=== PATIENT | male | born 1970 | race Caucasian/White ===

== ENCOUNTER 2016-09-17 23:25 | Emergency (ER) | payer OTHER ==
[~2016-09-17] VITALS: Ht 177.8 cm; Wt 79.4 kg
[~2016-09-17 23:25] MED LIST: GABAPENTIN800 MG ORAL; KLONOPIN1 MG ORAL; Risperdal; ZOLOF
[2016-09-18 00:07] LABS: BASOPHILS % (AUTO) 1.2 % (0.0-2.0); EOSINOPHILS % (AUTO) 0.9 % (0.0-3.0); LYMPHOCYTES % (AUTO) 32.8 % (20.0-45.0); MEAN CORPUSCULAR HGB CONC 34.8 G/DL (32.0-36.0); MEAN CORPUSCULAR VOLUME 98 FL (80-99); MEAN PLATELET VOLUME 8.3 FL (6.5-10.1); MONOCYTES % (AUTO) 7.1 % (1.0-10.0); PLATELET COUNT 265 K/UL (150-450); RED BLOOD COUNT 4.65 M/UL (4.70-6.10); RED CELL DISTRIBUTION WIDTH 13.1 % (11.6-14.8); WHITE BLOOD COUNT 10.5 K/UL (4.8-10.8)
[2016-09-18 00:08] LABS: APPEARANCE,URINE CLEAR; KETONES,URINE NEGATIVE (NEGATIVE); LEUKOCYTE ESTERASE ,URINE NEGATIVE (NEGATIVE); NITRITE,URINE NEGATIVE (NEGATIVE); PH,URINE 5 (4.5-8.0); PROTEIN,URINE NEGATIVE (NEGATIVE); UROBILINOGEN,URINE NORMAL MG/DL (0.0-1.0)
[2016-09-18 00:20] LABS: ACETAMINOPHEN < 10 ug/mL (10-30); ALANINE AMINOTRANSFERASE 40 U/L (3-41); ALBUMIN/GLOBULIN RATIO 1.4 (1.0-2.7); ALCOHOL 224 mg/dL; ANION GAP 20 (5-15); ASPARTATE AMINO TRANSFERASE 50 U/L (5-40); CALCIUM 8.8 mg/dL (8.6-10.2); CARBON DIOXIDE 21 mEQ/L (20-30); CHLORIDE 103 mEQ/L (98-107); CREATININE 0.8 mg/dL (0.7-1.2); GLOMERULAR FILTRATION RATE > 60 mL/min (>60); HEMOLYSIS 8; POTASSIUM 3.8 mEQ/L (3.4-4.9); SODIUM 144 mEQ/L (135-145); TOTAL PROTEIN 7.2 g/dL (6.6-8.7)
--- NOTE | 2016-09-18 01:57 | Emergency Room Report ---
History of Present Illness General Chief Complaint: Medical Clearance Source: Patient Present Illness HPI Is a 46-year-old male with no significant past medical history except for asthma. He presents with chief complaint of shortness of breath. He had call 911 because he said he felt suicidal depressed. Police placed on a 5150 and significant a psych facility. He then complaining that he felt short of breath and he told me that he always feels short of breath. Denies any fever chills denies nausea vomiting. Denies delusion or hallucination. No homicidal thought. Still felt depressed. Allergies: Coded Allergies: ARIPIPRAZOLE (Unverified Allergy, Unknown, 03/22/15) Patient History Past Medical History: see triage record, old chart reviewed, psych hx, asthma Past Surgical History: none Family History: none Social History: tobacco use, ETOH Immunizations: other Reviewed Nursing Documentation: PMH: Agreed, PSxH: Agreed Nursing Documentation-PMH Past Medical History: No History, Except For Hx Asthma: Yes Hx Dialysis: No - NERVE PAIN BLE Hx Neurological Problems: Yes - LE nerve pain Hx Seizures: Yes Review of Systems ENT: Denies: sore throat Cardiovascular: Denies: chest pain, palpitations Gastrointestinal/Abdominal: Denies: diarrhea, nausea, vomiting Musculoskeletal: Denies: back problems Skin: Denies: rash Neurological: Denies: SEXTON, seizures All Other Systems: negative except mentioned in HPI Physical Exam Vital Signs Date Time Temp Pulse Resp B/P Pulse Ox O2 Delivery O2 Flow Rate FiO2 09/17/16 23:18 97.9 95 16 132/81 95 vitals normal Sp02 EP Interpretation: reviewed, normal General Appearance: alert/responsive, no apparent distress, non-toxic Head: normocephalic, atraumatic Eyes: PERRL, EOMI ENT: oropharynx normal Neck: supple/symm/no masses Respiratory: effort normal, no rhonchi, no wheezing Cardiovascular: no murmur, gallop, rub Gastrointestinal: non-tender, no mass, non-distended, no rebound/guarding, normal bowel sounds Musculoskeletal: gait & station normal Neurologic: oriented x3, sensory intact, motor strength/tone normal Suicide Risk Assessment: Suicidal Ideation: Yes Had intent to initiate attempt: No Pt's plan for suicide attempt: No Has means to complete attempt: No Skin: no rash, normal palpation Medical Decision Making Diagnostic Impression: Primary Impression: Alcohol intoxication Qualified Codes: F10.920 - Alcohol use, unspecified with intoxication, uncomplicated Additional Impressions: Anxiety Suicidal ideations ER Course Patient with suicidal thoughts. This may be drugs and alcohol related. It shows of breath is probably secondary to anxiety from alcohol. He sleeping comfortably. Lungs are clear. I see no evidence of ACS, PE, dissection to name a few. He is on a 5150. Once alcohol level is less than 100, he is medically cleared for psychiatric placement. Lab Results Impression last with elevated alcohol level Last Vital Signs Date Time Temp Pulse Resp B/P Pulse Ox O2 Delivery O2 Flow Rate FiO2 09/17/16 23:18 97.9 95 16 132/81 95 Status: improved Disposition: XFER TO PSYCH HOSP/UNIT Condition: Stable Referrals: Alecia JUÁREZ,REFERRING (PCP) NICOLASA GRAHAM M.D. Sep 18, 2016 01:57
[2016-09-18 02:05] VITALS: BP 129/87
[2016-09-18 05:51] VITALS: BP 135/73
[2016-09-18 08:23] VITALS: BP 131/76
[2016-09-18] MEDS ORDERED: LORazepam 1mg tab ORAL ONE (10:45)
[2016-09-18 12:30] VITALS: BP 132/75
--- NOTE | 2016-09-18 13:30 | Consultation ---
DATE OF CONSULTATION: NOTE: POOR AUDIO QUALITY HISTORY OF PRESENT ILLNESS: This is a 46-year-old male with a history of alcohol dependence and anxiety disorder. He was evaluated in the emergency room. He presented with a chief complaint of suicidal ideation. In the emergency room, the patient's alcohol level was noted to be less than 100. He also has been smoking marijuana. The police put him on a 5150 hold after he called 911 and complained of suicidal ideation. In the emergency room, he stated that he would like to be transferred to the [facility] as his psychiatrist is there. The patient recently applied for disability and is hoping to receive SSI. He has not been taking any antidepressants, only taking Klonopin three times a day, Flexeril, and Neurontin. The patient does not endorse any psychotic symptoms. He is endorsing anxiety and irritability. No other depressive symptoms. He stated that he is suicidal. I do not believe that he is having any intention or plan to end his life. I believe this is a secondary gain. However, I was unable to get a hold of his psychiatrist, Dr. Tyler and the patient in the middle of the evaluation, decided to walk out of the ED and go to [facility]. Then 5 minutes later, he decided again that he would like to go to [facility]. PAST PSYCHIATRIC HISTORY: He stated that he has several psychiatric hospitalizations. No known suicide attempts in the past. PAST MEDICAL HISTORY: Significant for asthma. ALLERGIES: Includes Xanax. SUBSTANCE USE HISTORY: Extensive use of marijuana as well as alcohol. SOCIAL HISTORY: The patient lives in . Apparently, there is some issues with the housing and his neighbor. Apparently, he left his apartment 2 weeks. He is returned and there is as the neighbor complained about him to the MENTAL STATUS EXAMINATION: The patient is alert and oriented x4. Somewhat uncooperative during the examination. He was at some point, he became belligerent, [facility] and stated that the doctors . Mood was irritable. Affect was constricted, congruent with mood appropriate. Thought process was linear. Thought content, he stated he does endorse suicidal ideation. I do not believe that danger to self. No delusions. No auditory or visual hallucinations. Cognition was intact. Insight and judgment was good. ASSESSMENT: AXIS I: Polysubstance dependence including benzodiazepine, marijuana, and alcohol, rule out major depressive disorder. AXIS II: Deferred. AXIS III: Asthma. AXIS IV: Housing issues as well as financial issues. AXIS V: 60. PLAN: 1. The patient is currently on a 5150 hold and plan for him to be transferred to [facility]. 2. If the patient decides to leave, he should be the patient decided to leave or not to [facility]. 5150 hold. The patient will follow up with his psychiatrist. 3. He stated that he is able to go to another hospital. However, he has problems with transportation. 4. He is not an immuno danger to self. Rachel Holbrook M.D. DR: MOUNA JOB#: [id number] CC:
[2016-09-18 13:55] VITALS: BP 134/92
== END 2016-09-18 13:57 ==
LOC: EDBD 23:25 → EMR 23:45
DX: F10.129 Alcohol abuse with intoxication, unspecified (principal); F41.9 Anxiety disorder, unspecified; R45.851 Suicidal ideations; J45.909 Unspecified asthma, uncomplicated; Z88.8 Allergy status to other drugs, medicaments and biological substances
CPT/HCPCS: 36415; 80053; 80300; 80329; 81003; 85025

== ENCOUNTER 2016-12-09 22:07 | Emergency (ER) | payer OTHER ==
[~2016-12-09] VITALS: Ht 175.3 cm; Wt 72.6 kg
[2016-12-09 23:14] VITALS: BP 147/88
--- NOTE | 2016-12-09 23:42 | Emergency Room Report ---
History of Present Illness General Chief Complaint: Behavioral Complaint Source: Patient, EMS (Gallito Ortiz M.D.) Present Illness HPI The patient's been off his medications for 3 months. He suffers from depression. Right now he feels a lot of pressure in his head. He feels suicidal his vital be run out in traffic. He drank a lot of alcohol tonight. In the past he was taking Zoloft Clonopin and gabapentin. No seizures, GI bleed, melena, rashes, head trauma. No chest pain, palpitations, NVD, dysuria, joint pain, cough, headache. (Gallito Ortiz M.D.) Allergies: Coded Allergies: ARIPIPRAZOLE (Unverified Allergy, Unknown, 03/22/15) Patient History Past Medical History: see triage record Social History: Reports: alcohol use Social History Narrative lives in apartment by himself Reviewed Nursing Documentation: PMH: Agreed, PSxH: Agreed (Gallito Ortiz M.D.) Nursing Documentation-PMH Past Medical History: No History, Except For Hx Asthma: Yes Hx Dialysis: No - NERVE PAIN BLE Hx Neurological Problems: Yes - LE nerve pain Hx Seizures: Yes (Gallito Ortiz M.D.) Review of Systems All Other Systems: negative except mentioned in HPI (Gallito Ortiz M.D.) Physical Exam Vital Signs Date Time Temp Pulse Resp B/P (MAP) Pulse Ox O2 Delivery O2 Flow Rate FiO2 12/09/16 22:15 97.3 105 14 147/88 98 Room Air Sp02 EP Interpretation: reviewed, normal General Appearance: well appearing, GCS 15, mild distress - with some agitation Head: normocephalic Eyes: bilateral eye PERRL, bilateral eye Scleral Injection ENT: moist mucus membranes - no lingual macerations Neck: supple, no bony tend Respiratory: chest non-tender, lungs clear, normal breath sounds Cardiovascular #1: regular rate, rhythm Cardiovascular #2: 2+ radial (R) Gastrointestinal: normal inspection, normal bowel sounds, non tender, no mass, non-distended Musculoskeletal: back normal, gait/station normal, normal range of motion Neurologic: alert, oriented x3, other - nystagmus Psychiatric: depressed affect, other - labile and occasionally verbally abusive with staff Suicide Risk Assessment: Suicidal Ideation: Yes Had intent to initiate attempt: Yes Pt's plan for suicide attempt: Yes Has means to complete attempt: Yes Skin: normal inspection, warm/dry (Gallito Ortiz M.D.) Medical Decision Making Diagnostic Impression: Primary Impression: Suicidal ideations Additional Impression: Alcohol intoxication Qualified Codes: F10.929 - Alcohol use, unspecified with intoxication, unspecified ER Course Patient presents with agitation and suicidal ideation. Differential includes exacerbation pression, alcohol intoxication, other drug ingestion, electrolyte imbalance amongst others. He's emergent evaluation EKG, labs. There is no evidence of any head trauma and has a nonfocal neurologic exam and therefore CT is not indicated. He also has no chest symptoms a chest x-ray is not indicated. Treated with IV hydration and also given antipsychotic medication. Labs are significant for elevated blood alcohol. His mild leukocytosis. More agitated. States he will take medication. Labs with + alcohol. Improved with medication. Sleeping. Due to the suicidal ideation needs to be reevaluated in the morning and evaluated by our psychiatrist. Signed out to Dr. Mullen. Laboratory Tests Test 12/09/16 23:02 12/09/16 23:10 White Blood Count 14.5 K/UL (4.8-10.8) H Red Blood Count 5.06 M/UL (4.70-6.10) Hemoglobin 16.8 G/DL (14.2-18.0) Hematocrit 48.9 % (42.0-52.0) Mean Corpuscular Volume 97 FL (80-99) Mean Corpuscular Hemoglobin 33.2 PG (27.0-31.0) H Mean Corpuscular Hemoglobin Concent 34.4 G/DL (32.0-36.0) Red Cell Distribution Width 12.6 % (11.6-14.8) Platelet Count 381 K/UL (150-450) Mean Platelet Volume 8.0 FL (6.5-10.1) Neutrophils (%) (Auto) 51.3 % (45.0-75.0) Lymphocytes (%) (Auto) 42.0 % (20.0-45.0) Monocytes (%) (Auto) 4.1 % (1.0-10.0) Eosinophils (%) (Auto) 1.4 % (0.0-3.0) Basophils (%) (Auto) 1.3 % (0.0-2.0) Sodium Level 142 mEQ/L (135-145) Potassium Level 3.5 mEQ/L (3.4-4.9) Chloride Level 100 mEQ/L (98-107) Carbon Dioxide Level 22 mEQ/L (20-30) Anion Gap 20 (5-15) H Blood Urea Nitrogen 9 mg/dL (7-23) Creatinine 0.8 mg/dL (0.7-1.2) Estimate Glomerular Filtration Rate > 60 mL/min (>60) Glucose Level 122 mg/dL (74-106) H Calcium Level 9.2 mg/dL (8.6-10.2) Total Bilirubin < 0.2 mg/dL (0.0-1.2) Aspartate Amino Transferase (AST) 21 U/L (5-40) Alanine Aminotransferase (ALT) 24 U/L (3-41) Alkaline Phosphatase 112 U/L (40-129) Total Creatine Kinase 79 U/L (38-174) Total Protein 7.8 g/dL (6.6-8.7) Albumin 4.6 g/dL (3.5-5.2) Globulin 3.2 g/dL Albumin/Globulin Ratio 1.4 (1.0-2.7) Salicylates Level < 1 mg/dL (10-30) L Acetaminophen Level < 10 ug/mL (10-30) L Serum Alcohol 231 mg/dL Urine Opiates Screen Negative (NEGATIVE) Urine Barbiturates Screen Negative (NEGATIVE) Phencyclidine (PCP) Screen Negative (NEGATIVE) Urine Amphetamines Screen Negative (NEGATIVE) Urine Benzodiazepines Screen Negative (NEGATIVE) Urine Cocaine Screen Negative (NEGATIVE) Urine Marijuana (THC) Screen Positive (NEGATIVE) H (Gallito Ortiz M.D.) ER Course 46-year-old male history of anxiety and depression, off his medications for 3 months, states that he takes Clonopin, Zoloft, and gabapentin. Patient currently endorsing suicidal ideation with a plan, states that he wants to run in front of traffic or hanging himself. Pending psych consult Patient has been very demanding, hostile, and aggressive towards female staff. Otherwise patient does not appear to be in acute distress, not tremulous, not diaphoretic Evaluated by psych, Patient requesting admission to a psych facility, pending transfer Signed out to Dr. Zhang 46 yo M with psych hx very aggressive/manipulative toward staff stating SI "I will jump in front of a car" pending xfer to psych facility per patients request, also demanding a certain psych dr to be admitted to D/w Dr. Holbrook - plan is that if patient is NOT accepted into psych facility, can be discharged home. pt likely more so narcissistic w/ other agenda / manipulative. do not give any benzos to patient (Piyush Mullen M.D.) EKG Diagnostic Results Rate: normal Rhythm: NSR ST Segments: no acute changes (Gallito Ortiz M.D.) Rhythm Strip Diag. Results EP Interpretation: yes Rhythm: NSR, no PVC's, no ectopy (Gallito Ortiz M.D.) Last Vital Signs Date Time Temp Pulse Resp B/P (MAP) Pulse Ox O2 Delivery O2 Flow Rate FiO2 12/10/16 16:30 98.0 92 16 156/93 98 Room Air Status: improved (Gallito Ortiz M.D.) Disposition: XFER SHT-TRM HOSP - [facility] Condition: Serious - stable for transfer Scripts Gabapentin* (GABAPENTIN*) 800 Mg Tablet 800 MG ORAL BID, #28 TAB Prov: Gallito Ortiz M.D. 12/10/16 Sertraline Hcl* (ZOLOFT*) 25 Mg Tablet 25 MG ORAL DAILY, #14 TAB Prov: Gallito Ortiz M.D. 12/10/16 Referrals: Alecia JUÁREZ,REFERRING (PCP) Gallito Ortiz M.D. Dec 09, 2016 23:42 Piyush Mullen M.D. Dec 10, 2016 06:38
[2016-12-09] MEDS ORDERED: LORazepam 1mg tab ORAL ONE (23:45)
[2016-12-09 23:50] LABS: BASOPHILS % (AUTO) 1.3 % (0.0-2.0); EOSINOPHILS % (AUTO) 1.4 % (0.0-3.0); MEAN CORPUSCULAR HEMOGLOBIN 33.2 PG (27.0-31.0); MEAN CORPUSCULAR HGB CONC 34.4 G/DL (32.0-36.0); MEAN CORPUSCULAR VOLUME 97 FL (80-99); MONOCYTES % (AUTO) 4.1 % (1.0-10.0); NEUTROPHILS % (AUTO) 51.3 % (45.0-75.0); PLATELET COUNT 381 K/UL (150-450); RED BLOOD COUNT 5.06 M/UL (4.70-6.10); RED CELL DISTRIBUTION WIDTH 12.6 % (11.6-14.8); WHITE BLOOD COUNT 14.5 K/UL (4.8-10.8)
[2016-12-10 00:05] LABS: ACETAMINOPHEN < 10 ug/mL (10-30); ALANINE AMINOTRANSFERASE 24 U/L (3-41); ALBUMIN/GLOBULIN RATIO 1.4 (1.0-2.7); ALCOHOL 231 mg/dL; ANION GAP 20 (5-15); ASPARTATE AMINO TRANSFERASE 21 U/L (5-40); CALCIUM 9.2 mg/dL (8.6-10.2); CARBON DIOXIDE 22 mEQ/L (20-30); CHLORIDE 100 mEQ/L (98-107); CREATININE 0.8 mg/dL (0.7-1.2); GLOMERULAR FILTRATION RATE > 60 mL/min (>60); HEMOLYSIS 4; POTASSIUM 3.5 mEQ/L (3.4-4.9); SODIUM 142 mEQ/L (135-145); TOTAL PROTEIN 7.8 g/dL (6.6-8.7)
[2016-12-10] MEDS ORDERED: ZOLOFT25 MG ORAL (05:11)
[2016-12-10] MEDS ORDERED: GABAPENTIN800 MG ORAL (05:11)
--- NOTE | 2016-12-10 11:37 | Consultation ---
History of Present Illness General Chief Complaint: Behavioral Complaint Present Illness HPI 46-year-old male with a history of alcohol dependence and anxiety disorder, the pt has chief complaint of suicidal ideation. the pt was here in September with similar presentation. He apparently relapsed after discharged from the hospital. Dr. Tyler started him on medications and the pt was released from [facility] without follow up plan. the pt is entitled, stated "you have to admit me I' m telling you that I am suicidal. You are liable. I called 911. You have to admit me to [facility]." The pt stated "you have no other way to transfer me." The pt system is positive for alcohol. the pt is irritable. He has been sleep most of the time. He has been eating food. the pt has been harassing female staff. the pt does not endorse any psychotic sxs. the pt doesn't endorse manic sxs. the pt is not gravely disabled. the pt was not anxious however he was asking for Ativan. We ordered Lexapro for anxiety. Allergies: Coded Allergies: ARIPIPRAZOLE (Unverified Allergy, Unknown, 03/22/15) Medication History Scheduled Clonazepam* (Klonopin*), 2 MG ORAL TWICE A DAY, (Reported) Gabapentin* (Gabapentin*), 800 MG ORAL THREE TIMES A DAY, (Reported) Gabapentin* (Gabapentin*), 800 MG ORAL BID Sertraline Hcl* (Zoloft*), 25 MG ORAL DAILY Miscellaneous Medications [Risperdal], (Reported) [Zolof], (Reported) Patient History History Provided By: Patient, Medical Record, PMD Healthcare decision maker Resuscitation status Advanced Directive on File Past Medical/Surgical History Past Medical/Surgical History: (1) Syncope (2) Syncope (3) Suicidal ideations (4) Alcohol intoxication (5) Anxiety (6) Suicidal ideations (7) Suicidal ideations (8) Drug abuse Review of Systems Psychiatric: Reports: prior hx, depressed feelings, emotional problems, SI Physical Exam General Appearance: no apparent distress, alert Neurologic: alert, oriented x 3, responsive, normal mood/affect Last 24 Hour Vital Signs Date Time Temp Pulse Resp B/P (MAP) Pulse Ox O2 Delivery O2 Flow Rate FiO2 12/09/16 23:14 97.3 94 14 147/88 98 Room Air 12/09/16 22:15 97.3 105 14 147/88 98 Room Air Laboratory Tests Test 12/09/16 23:02 12/09/16 23:10 White Blood Count 14.5 K/UL (4.8-10.8) H Red Blood Count 5.06 M/UL (4.70-6.10) Hemoglobin 16.8 G/DL (14.2-18.0) Hematocrit 48.9 % (42.0-52.0) Mean Corpuscular Volume 97 FL (80-99) Mean Corpuscular Hemoglobin 33.2 PG (27.0-31.0) H Mean Corpuscular Hemoglobin Concent 34.4 G/DL (32.0-36.0) Red Cell Distribution Width 12.6 % (11.6-14.8) Platelet Count 381 K/UL (150-450) Mean Platelet Volume 8.0 FL (6.5-10.1) Neutrophils (%) (Auto) 51.3 % (45.0-75.0) Lymphocytes (%) (Auto) 42.0 % (20.0-45.0) Monocytes (%) (Auto) 4.1 % (1.0-10.0) Eosinophils (%) (Auto) 1.4 % (0.0-3.0) Basophils (%) (Auto) 1.3 % (0.0-2.0) Sodium Level 142 mEQ/L (135-145) Potassium Level 3.5 mEQ/L (3.4-4.9) Chloride Level 100 mEQ/L (98-107) Carbon Dioxide Level 22 mEQ/L (20-30) Anion Gap 20 (5-15) H Blood Urea Nitrogen 9 mg/dL (7-23) Creatinine 0.8 mg/dL (0.7-1.2) Estimat Glomerular Filtration Rate > 60 mL/min (>60) Glucose Level 122 mg/dL (74-106) H Calcium Level 9.2 mg/dL (8.6-10.2) Total Bilirubin < 0.2 mg/dL (0.0-1.2) Aspartate Amino Transf (AST/SGOT) 21 U/L (5-40) Alanine Aminotransferase (ALT/SGPT) 24 U/L (3-41) Alkaline Phosphatase 112 U/L (40-129) Total Creatine Kinase 79 U/L (38-174) Total Protein 7.8 g/dL (6.6-8.7) Albumin 4.6 g/dL (3.5-5.2) Globulin 3.2 g/dL Albumin/Globulin Ratio 1.4 (1.0-2.7) Salicylates Level < 1 mg/dL (10-30) L Acetaminophen Level < 10 ug/mL (10-30) L Serum Alcohol 231 mg/dL Urine Opiates Screen Negative (NEGATIVE) Urine Barbiturates Screen Negative (NEGATIVE) Phencyclidine (PCP) Screen Negative (NEGATIVE) Urine Amphetamines Screen Negative (NEGATIVE) Urine Benzodiazepines Screen Negative (NEGATIVE) Urine Cocaine Screen Negative (NEGATIVE) Urine Marijuana (THC) Screen Positive (NEGATIVE) H Height (Feet): 5 Height (Inches): 9.00 Weight (Pounds): 160 Medications Current Medications Medications (Trade) Dose Ordered Sig/Aldo Route PRN Reason Start Time Stop Time Status Last Admin Dose Admin Escitalopram Oxalate (Lexapro) 10 mg DAILY ORAL 12/10/16 09:00 01/09/17 08:59 Sodium Chloride 1,000 ml @ 300 mls/hr [id number] IV 12/09/16 22:15 01/08/17 22:14 Assessment/Plan Status: doing well, stable Assessment/Plan Hx of alcohol dependence -wants to go to [facility] -wants to be treated by Dr. Tyler -the pt will be transferred to any psych facility available -the pt is not withdrawing -lexapro 10mg -d/w staff Rachel Holbrook M.D. Dec 10, 2016 11:37
--- NOTE | 2016-12-10 14:40 | Cardiology Report ---
APPROVED REPORT EKG Measurement Heart [id number] Normal sinus rhythm Nonspecific ST and T wave abnormality Abnormal ECG
[2016-12-10 16:28] VITALS: BP 156/93
[2016-12-10 16:30] VITALS: BP 156/93
== END 2016-12-10 16:31 ==
LOC: EDBD 22:07 → EMR 22:23
DX: R45.851 Suicidal ideations (principal); F10.129 Alcohol abuse with intoxication, unspecified; Z88.8 Allergy status to other drugs, medicaments and biological substances; Z86.69 Personal history of other diseases of the nervous system and sense organs; J45.909 Unspecified asthma, uncomplicated
CPT/HCPCS: 36415; 80053; 80300; 80329; 82550; 85025; 93005; 99285

== ENCOUNTER 2017-02-09 01:27 | Emergency (ER) | payer OTHER ==
[~2017-02-09] VITALS: Ht 170.2 cm; Wt 72.6 kg
[~2017-02-09 01:27] MED LIST changes: +ZOLOFT25 MG ORAL
[2017-02-09] MEDS: LORazepam Inj 2mg/ml 1ml IM ONE (01:35)
--- NOTE | 2017-02-09 01:38 | Emergency Room Report ---
History of Present Illness General Chief Complaint: General Complaint Source: Patient, EMS (ALEXANDER MANTILLA M.D.) Present Illness HPI 46-year-old male presents ED for evaluation. Patient brought in by [employer] and EMS. Patient was in police custody for running into traffic tonight. Patient is feeling very anxious stating he wants to hurt himself. Patient notes history of anxiety. Denies any alcohol or drug use. Denies fevers or chills. Denies chest pain or shortness of breath. No other aggravating relieving factors. Denies any other associated symptoms (ALEXANDER MANTILLA M.D.) Allergies: Coded Allergies: ARIPIPRAZOLE (Unverified Allergy, Unknown, 03/22/15) Patient History Past Medical History: asthma, seizures Pertinent Family History: none Social History: Denies: smoking, alcohol use, drug use Immunizations: UTD Reviewed Nursing Documentation: PMH: Agreed, PSxH: Agreed (ALEXANDER MANTILLA M.D.) Nursing Documentation-PMH Hx Asthma: Yes Hx Dialysis: No - NERVE PAIN BLE Hx Neurological Problems: Yes - LE nerve pain Hx Seizures: Yes (ALEXANDER MANTILLA M.D.) Review of Systems All Other Systems: negative except mentioned in HPI (ALEXANDER MANTILLA M.D.) Physical Exam Vital Signs Date Time Temp Pulse Resp B/P (MAP) Pulse Ox O2 Delivery O2 Flow Rate FiO2 02/09/17 01:10 98.1 100 18 120/80 98 Room Air Sp02 EP Interpretation: reviewed, normal General Appearance: no apparent distress, alert, GCS 15, non-toxic Head: normocephalic, atraumatic Eyes: bilateral eye normal inspection, bilateral eye PERRL ENT: hearing grossly normal, normal pharynx, no angioedema, normal voice Neck: full range of motion, supple/symm/no masses Respiratory: chest non-tender, lungs clear, normal breath sounds, speaking full sentences Cardiovascular #1: regular rate, rhythm, no edema Cardiovascular #2: 2+ carotid (R), 2+ carotid (L), 2+ radial (R), 2+ radial (L) , 2+ dorsalis pedis (R), 2+ dorsalis pedis (L) Gastrointestinal: normal bowel sounds, non tender, soft, non-distended, no guarding, no rebound Rectal: deferred Genitourinary: normal inspection, no CVA tenderness Musculoskeletal: back normal, gait/station normal, normal range of motion, non- tender Neurologic: alert, oriented x3, responsive, motor strength/tone normal, sensory intact, speech normal Psychiatric: judgement/insight normal, memory normal, anxious Reflexes: 3+ bicep (R), 3+ bicep (L), 3+ tricep (R), 3+ tricep (L), 3+ knee (R) , 3+ knee (L) Skin: normal color, no rash, warm/dry, well hydrated Lymphatic: no adenopathy (ALEXANDER MANTILLA M.D.) Medical Decision Making Diagnostic Impression: Primary Impression: Alcohol intoxication Qualified Codes: F10.920 - Alcohol use, unspecified with intoxication, uncomplicated Additional Impressions: Suicidal ideations Hypokalemia ER Course Received signout from Dr Mantilla at 630am Patient's ETOH level now <100 K was repleted Is clinically sober. Patient adamantly now denying SI Also denies HI, AVH Remains on 5150 hold Patient disruptive to ED, yelling, demanding klonopin 2mg Was given dose of AM klonopin [facility] hospitals contacted for placement and Dr Noland also consulted at 7am Dr Noland cleared patient of 5150 hold and patient was DCed from ER at 10am (CAROL VILLA M.D.) Last Vital Signs Date Time Temp Pulse Resp B/P (MAP) Pulse Ox O2 Delivery O2 Flow Rate FiO2 02/09/17 01:10 98.1 100 18 120/80 98 Room Air (ALEXANDER MANTILLA M.D.) Status: improved (CAROL VILLA M.D.) Disposition: HOME, SELF-CARE ALEXANDER MANTILLA M.D. Feb 09, 2017 01:38 CAROL VILLA M.D. Feb 09, 2017 07:04
[2017-02-09 02:25] LABS: BASOPHILS % (AUTO) 1.2 % (0.0-2.0); EOSINOPHILS % (AUTO) 1.7 % (0.0-3.0); LYMPHOCYTES % (AUTO) 47.8 % (20.0-45.0); MEAN CORPUSCULAR HEMOGLOBIN 31.2 PG (27.0-31.0); MEAN CORPUSCULAR HGB CONC 32.4 G/DL (32.0-36.0); MEAN CORPUSCULAR VOLUME 96 FL (80-99); MEAN PLATELET VOLUME 8.1 FL (6.5-10.1); MONOCYTES % (AUTO) 6.8 % (1.0-10.0); NEUTROPHILS % (AUTO) 42.6 % (45.0-75.0); PLATELET COUNT 298 K/UL (150-450); RED BLOOD COUNT 5.16 M/UL (4.70-6.10); RED CELL DISTRIBUTION WIDTH 12.8 % (11.6-14.8); WHITE BLOOD COUNT 11.3 K/UL (4.8-10.8)
[2017-02-09 02:42] LABS: ALANINE AMINOTRANSFERASE 52 U/L (12-78); ALCOHOL 233 mg/dL; ANION GAP 20 mmol/L (5-15); ASPARTATE AMINO TRANSFERASE 37 U/L (15-37); CALCIUM 9.2 MG/DL (8.5-10.1); CARBON DIOXIDE 21 MMOL/L (21-32); CHLORIDE 109 MMOL/L (98-107); CREATININE 1.1 MG/DL (0.55-1.30); GLOMERULAR FILTRATION RATE > 60 mL/min (>60); SODIUM 148 MMOL/L (136-145); TOTAL PROTEIN 8.4 G/DL (6.4-8.2)
[2017-02-09 02:46] LABS: ACETAMINOPHEN < 2 MCG/ML (10-30); POTASSIUM 2.6 MMOL/L (3.5-5.1)
[2017-02-09 06:00] VITALS: BP 112/55
[2017-02-09] MEDS: Acetaminophen 500mg (ES) tab ORAL ONE (06:17)
[2017-02-09 10:13] VITALS: BP 123/61
[2017-02-09 10:16] VITALS: BP 123/61
--- NOTE | 2017-02-10 00:22 | Consultation ---
History of Present Illness General Date patient seen: Feb 09, 2017 Chief Complaint: General Complaint Present Illness HPI the pt is well known to this physician, the pt is an er hopper and abusing the system. the pt is antisocial as well as narcissistic the pt is not a dts/dto. the pt stated that he needs to be discharged. Allergies: Coded Allergies: ARIPIPRAZOLE (Unverified Allergy, Unknown, 03/22/15) Medication History Scheduled Clonazepam* (Klonopin*), 2 MG ORAL TWICE A DAY, (Reported) Gabapentin* (Gabapentin*), 800 MG ORAL THREE TIMES A DAY, (Reported) Miscellaneous Medications [Risperdal], (Reported) [Zolof], (Reported) Patient History History Provided By: Patient, Medical Record Healthcare decision maker Resuscitation status Advanced Directive on File Review of Systems Psychiatric: Reports: no symptoms Physical Exam General Appearance: no apparent distress, alert Neurologic: alert, oriented x 3, responsive, normal mood/affect Last 24 Hour Vital Signs Date Time Temp Pulse Resp B/P (MAP) Pulse Ox O2 Delivery O2 Flow Rate FiO2 02/09/17 10:16 98.2 81 17 123/61 100 Room Air 02/09/17 10:13 98.2 81 17 123/61 100 Room Air 02/09/17 06:00 98.2 16 112/55 100 Room Air 02/09/17 01:10 98.1 100 18 120/80 98 Room Air Laboratory Tests Test 02/09/17 02:00 02/09/17 05:55 White Blood Count 11.3 K/UL (4.8-10.8) H Red Blood Count 5.16 M/UL (4.70-6.10) Hemoglobin 16.1 G/DL (14.2-18.0) Hematocrit 49.6 % (42.0-52.0) Mean Corpuscular Volume 96 FL (80-99) Mean Corpuscular Hemoglobin 31.2 PG (27.0-31.0) H Mean Corpuscular Hemoglobin Concent 32.4 G/DL (32.0-36.0) Red Cell Distribution Width 12.8 % (11.6-14.8) Platelet Count 298 K/UL (150-450) Mean Platelet Volume 8.1 FL (6.5-10.1) Neutrophils (%) (Auto) 42.6 % (45.0-75.0) L Lymphocytes (%) (Auto) 47.8 % (20.0-45.0) H Monocytes (%) (Auto) 6.8 % (1.0-10.0) Eosinophils (%) (Auto) 1.7 % (0.0-3.0) Basophils (%) (Auto) 1.2 % (0.0-2.0) Sodium Level 148 MMOL/L (136-145) H Potassium Level 2.6 MMOL/L (3.5-5.1) *L 3.3 MMOL/L (3.5-5.1) L Chloride Level 109 MMOL/L (98-107) H Carbon Dioxide Level 21 MMOL/L (21-32) Anion Gap 20 mmol/L (5-15) H Blood Urea Nitrogen 11 mg/dL (7-18) Creatinine 1.1 MG/DL (0.55-1.30) Estimat Glomerular Filtration Rate > 60 mL/min (>60) Glucose Level 104 MG/DL (74-106) Calcium Level 9.2 MG/DL (8.5-10.1) Total Bilirubin 0.1 MG/DL (0.2-1.0) L Aspartate Amino Transf (AST/SGOT) 37 U/L (15-37) Alanine Aminotransferase (ALT/SGPT) 52 U/L (12-78) Alkaline Phosphatase 120 U/L (46-116) H Total Protein 8.4 G/DL (6.4-8.2) H Albumin 4.2 G/DL (3.4-5.0) Globulin 4.2 g/dL Albumin/Globulin Ratio 1.0 (1.0-2.7) Salicylates Level 3.8 ug/mL (2.8-20) Acetaminophen Level < 2 MCG/ML (10-30) L Serum Alcohol 233 mg/dL 94 mg/dL Height (Feet): 5 Height (Inches): 7.00 Weight (Pounds): 160 Assessment/Plan Status: stable Assessment/Plan sd 5150 sd the pt Rachel Holbrook M.D. Feb 10, 2017 00:22
== END 2017-02-09 10:26 | disposition home or self-care (01) ==
LOC: EDBD 01:27 → EMR 02:09
DX: F10.920 Alcohol use, unspecified with intoxication, uncomplicated (principal); R45.851 Suicidal ideations; F41.9 Anxiety disorder, unspecified; Z88.8 Allergy status to other drugs, medicaments and biological substances; J45.909 Unspecified asthma, uncomplicated; E87.6 Hypokalemia
CPT/HCPCS: 36415; 80053; 80329; 84132; 85025; 96372; 99285; J8499

== ENCOUNTER 2017-06-20 13:16 | Emergency (ER) | payer OTHER ==
[2017-06-20] VITALS (14 sets, daily range): BP systolic 104–130; BP diastolic 60–80
[~2017-06-20] VITALS: Ht 172.7 cm; Wt 81.6 kg
[~2017-06-20 13:16] MED LIST changes: +DiphenhydrAMINE 50mg/ml Inj IVP ONE; +Haloperidol 5mg/ml Inj IM ONE; +LORazepam Inj 2mg/ml 1ml IM ONE
[2017-06-20] MEDS ORDERED: DiphenhydrAMINE 50mg/ml Inj IM ONE (13:30)
--- NOTE | 2017-06-20 14:20 | Emergency Room Report ---
History of Present Illness General Chief Complaint: Behavioral Complaint Source: Patient, EMS (Gallito Ortiz M.D.) Present Illness HPI The patient was brought to the emergency department by paramedics. There were summoned by [facility]. The patient has a history of bipolar disorder and has been off his medication for a number of weeks. He states he is suicidal. He states that he would run into traffic. He was violent with paramedics on the way in and spitting and hitting at them and needed to be restrained with handcuffs and spit mask on. The patient denies any other medical problems at this time. He denies doing drugs or alcohol. He does smoke cigarettes. He is refusing to answer many questions. Was seen by me 11/2016. Was transferred to [facility]. Also has been seen for EtOH intoxication in past. (Gallito Ortiz M.D.) Allergies: Coded Allergies: ARIPIPRAZOLE (Unverified Allergy, Unknown, 03/22/15) Patient History Limited by: medical condition Past Medical History: see triage record, old chart reviewed Social History: Reports: smoking, alcohol use, drug use Social History Narrative at home Reviewed Nursing Documentation: PMH: Agreed; PSxH: Agreed (Gallito Ortiz M.D.) Nursing Documentation-PMH Past Medical History: No History, Except For Hx Asthma: Yes Hx Dialysis: No - NERVE PAIN BLE History Of Psychiatric Problem: Yes - bipolar, depression, substance obuse Hx Neurological Problems: Yes - LE nerve pain Hx Seizures: Yes (Gallito Ortiz M.D.) Review of Systems All Other Systems: limited (Gallito Ortiz M.D.) Physical Exam Vital Signs Date Time Temp Pulse Resp B/P (MAP) Pulse Ox O2 Delivery O2 Flow Rate FiO2 06/20/17 13:11 98.0 90 20 147/108 98 Room Air 98.1 Sp02 EP Interpretation: reviewed, normal General Appearance: moderate distress - agitated, other - Disheveled Head: normocephalic Eyes: bilateral eye PERRL, bilateral eye Scleral Injection ENT: moist mucus membranes - Poor dentition Neck: supple Respiratory: chest non-tender, lungs clear, normal breath sounds Cardiovascular #1: regular rate, rhythm Cardiovascular #2: 2+ radial (R) Gastrointestinal: normal inspection, normal bowel sounds, non tender, no mass, non-distended Musculoskeletal: back normal, normal range of motion Neurologic: alert, newspaper columnist III-XII nml as tested, motor strength/tone normal, sensory intact, oriented - X2 Psychiatric: other - delusional, screaming Suicide Risk Assessment: Suicidal Ideation: Yes Had intent to initiate attempt: Yes Pt's plan for suicide attempt: Yes Has means to complete attempt: Yes Skin: warm/dry, other - dishevelled (Gallito Ortiz M.D.) Medical Decision Making Medical: Alcohol Abuse, Substance Abuse Behavioral: Schizophrenia, Bipolar Disorder Reaction to Intervention: Other - violent (Gallito Ortiz M.D.) Diagnostic Impression: Primary Impression: Acute psychosis Additional Impressions: Suicidal ideation Alcohol intoxication Qualified Codes: F10.929 - Alcohol use, unspecified with intoxication, unspecified ER Course Patient presents with suicidal ideation and psychosis. Differential includes exacerbation of schizoaffective bipolar disorder, medical noncompliance, or slight imbalance, other toxic ingestions including alcohol and methamphetamine. Patient is agitated and violent and needs sedation. Once the patient is sedated be able to better manage him with evaluation with EKG, labs. Police placed 5150. The patient is improved with sedation and more cooperative over still has occasional loud outbursts and threats. Patient sedated. Will d/c behavioral restraints, but keep non-behavioral. Labs significant for elevated BA and THC. Min elevated WBC and ALT. K slightly low. Patient signed out to Dr. Mullen. Laboratory Tests Test 06/20/17 13:50 06/20/17 14:23 Urine Color Pale yellow Urine Appearance Clear Urine pH 6 (4.5-8.0) Urine Specific [place] 1.010 (1.005-1.035) Urine Protein Negative (NEGATIVE) Urine Glucose (UA) Negative (NEGATIVE) Urine Ketones Negative (NEGATIVE) Urine Occult Blood Negative (NEGATIVE) Urine Nitrite Negative (NEGATIVE) Urine Bilirubin Negative (NEGATIVE) Urine Urobilinogen Normal MG/DL (0.0-1.0) Urine Leukocyte Esterase Negative (NEGATIVE) Urine Opiates Screen Negative (NEGATIVE) Urine Barbiturates Screen Negative (NEGATIVE) Phencyclidine (PCP) Screen Negative (NEGATIVE) Urine Amphetamines Screen Negative (NEGATIVE) Urine Benzodiazepines Screen Negative (NEGATIVE) Urine Cocaine Screen Negative (NEGATIVE) Urine Marijuana (THC) Screen Positive (NEGATIVE) H White Blood Count 11.0 K/UL (4.8-10.8) H Red Blood Count 5.09 M/UL (4.70-6.10) Hemoglobin 16.6 G/DL (14.2-18.0) Hematocrit 49.4 % (42.0-52.0) Mean Corpuscular Volume 97 FL (80-99) Mean Corpuscular Hemoglobin 32.6 PG (27.0-31.0) H Mean Corpuscular Hemoglobin Concent 33.5 G/DL (32.0-36.0) Red Cell Distribution Width 12.1 % (11.6-14.8) Platelet Count 283 K/UL (150-450) Mean Platelet Volume 8.7 FL (6.5-10.1) Neutrophils (%) (Auto) 59.9 % (45.0-75.0) Lymphocytes (%) (Auto) 31.9 % (20.0-45.0) Monocytes (%) (Auto) 5.9 % (1.0-10.0) Eosinophils (%) (Auto) 1.2 % (0.0-3.0) Basophils (%) (Auto) 1.1 % (0.0-2.0) Sodium Level 145 MMOL/L (136-145) Potassium Level 3.4 MMOL/L (3.5-5.1) L Chloride Level 106 MMOL/L (98-107) Carbon Dioxide Level 27 MMOL/L (21-32) Anion Gap 12 mmol/L (5-15) Blood Urea Nitrogen 10 mg/dL (7-18) Creatinine 0.8 MG/DL (0.55-1.30) Estimate Glomerular Filtration Rate > 60 mL/min (>60) Glucose Level 94 MG/DL (74-106) Calcium Level 8.7 MG/DL (8.5-10.1) Total Bilirubin 0.1 MG/DL (0.2-1.0) L Aspartate Amino Transferase (AST) 50 U/L (15-37) H Alanine Aminotransferase (ALT) 68 U/L (12-78) Alkaline Phosphatase 105 U/L (46-116) Total Protein 8.2 G/DL (6.4-8.2) Albumin 3.9 G/DL (3.4-5.0) Globulin 4.3 g/dL Albumin/Globulin Ratio 0.9 (1.0-2.7) L Salicylates Level 2.1 ug/mL (2.8-20) L Acetaminophen Level < 2 MCG/ML (10-30) L Serum Alcohol 263 mg/dL (Gallito Ortiz M.D.) ER Course Received signout from Dr. Ortiz. 46-year-old male, with suicidal ideation. He was sedated, he is now more calm awake and alert. Still endorsing suicidal ideation. On a 5150 hold. Pending psych eval in the morning (Piyush Mullen M.D.) EKG Diagnostic Results Rate: normal Rhythm: NSR ST Segments: no acute changes (Gallito Ortiz M.D.) Rhythm Strip Diag. Results EP Interpretation: yes Rhythm: NSR, no PVC's, no ectopy (Gallito Ortiz M.D.) Last Vital Signs Date Time Temp Pulse Resp B/P (MAP) Pulse Ox O2 Delivery O2 Flow Rate FiO2 06/20/17 19:30 71 18 120/69 98 Room Air 06/20/17 13:11 98.0 98.1 Status: improved (Gallito Ortiz M.D.) Gallito Ortiz M.D. Jun 20, 2017 14:20 Piyush Mullen M.D. Jun 20, 2017 20:04
[2017-06-20 14:33] LABS: BASOPHILS % (AUTO) 1.1 % (0.0-2.0); EOSINOPHILS % (AUTO) 1.2 % (0.0-3.0); HEMATOCRIT 49.4 % (42.0-52.0); HEMOGLOBIN 16.6 G/DL (14.2-18.0); LYMPHOCYTES % (AUTO) 31.9 % (20.0-45.0); MEAN CORPUSCULAR VOLUME 97 FL (80-99); MONOCYTES % (AUTO) 5.9 % (1.0-10.0); NEUTROPHILS % (AUTO) 59.9 % (45.0-75.0); PLATELET COUNT 283 K/UL (150-450); RED BLOOD COUNT 5.09 M/UL (4.70-6.10); RED CELL DISTRIBUTION WIDTH 12.1 % (11.6-14.8)
[2017-06-20 14:42] LABS: APPEARANCE,URINE CLEAR; BILIRUBIN, URINE NEGATIVE (NEGATIVE); COLOR,URINE PALE YELLOW; GLUCOSE, URINE (UA) NEGATIVE (NEGATIVE); KETONES,URINE NEGATIVE (NEGATIVE); LEUKOCYTE ESTERASE ,URINE NEGATIVE (NEGATIVE); NITRITE,URINE NEGATIVE (NEGATIVE); PH,URINE 6 (4.5-8.0); PROTEIN,URINE NEGATIVE (NEGATIVE); UROBILINOGEN,URINE NORMAL MG/DL (0.0-1.0)
[2017-06-20 14:42] LABS: ANION GAP 12 mmol/L (5-15); BLOOD UREA NITROGEN 10 mg/dL (7-18); CALCIUM 8.7 MG/DL (8.5-10.1); CARBON DIOXIDE 27 MMOL/L (21-32); CHLORIDE 106 MMOL/L (98-107); CREATININE 0.8 MG/DL (0.55-1.30); POTASSIUM 3.4 MMOL/L (3.5-5.1); SODIUM 145 MMOL/L (136-145)
[2017-06-20 14:47] LABS: ALANINE AMINOTRANSFERASE 68 U/L (12-78); ALBUMIN 3.9 G/DL (3.4-5.0); ALBUMIN/GLOBULIN RATIO 0.9 (1.0-2.7); ALKALINE PHOSPHATASE 105 U/L (46-116); ASPARTATE AMINO TRANSFERASE 50 U/L (15-37); BILIRUBIN,TOTAL 0.1 MG/DL (0.2-1.0)
[2017-06-21 00:10] VITALS: BP 118/68
[2017-06-21 05:01] VITALS: BP 124/72
[2017-06-21] MEDS ORDERED: LORazepam 1mg tab ORAL ONE (10:00)
[2017-06-21 11:06] VITALS: BP 119/67
[2017-06-21] MEDS: Sertraline 50mg tab ORAL ONE ×2 (15:16→15:20)
[2017-06-21 15:45] VITALS: BP 119/67
--- NOTE | 2017-06-22 19:19 | Cardiology Report ---
APPROVED REPORT EKG Measurement Heart [id number] Normal sinus rhythm Normal ECG
--- NOTE | 2017-06-22 22:52 | Consultation ---
History of Present Illness General Date patient seen: Jun 21, 2017 Chief Complaint: Behavioral Complaint Present Illness HPI the pt has hx of alcohol use and depression. well know to this md at [facility]. the pt has hx of exploiting the system. In addition, he is disrespectful and uses foul language when he was told he will be discharged. the pt has poor insight about his addiction. the pt is not at imminent dts/dto Allergies: Coded Allergies: ARIPIPRAZOLE (Unverified Allergy, Unknown, 03/22/15) Medication History Scheduled Clonazepam* (Klonopin*), 2 MG ORAL TWICE A DAY, (Reported) Gabapentin* (Gabapentin*), 800 MG ORAL THREE TIMES A DAY, (Reported) Miscellaneous Medications [Risperdal], (Reported) [Zolof], (Reported) Patient History History Provided By: Patient, Medical Record, PMD Healthcare decision maker Resuscitation status Advanced Directive on File Past Medical/Surgical History Past Medical/Surgical History: (1) Alcohol intoxication (2) Drug abuse (3) Anxiety (4) Syncope (5) Syncope (6) Suicidal ideations (7) Suicidal ideations (8) Suicidal ideations Review of Systems Psychiatric: Reports: prior hx Physical Exam General Appearance: no apparent distress, alert Neurologic: oriented x 3, responsive, normal mood/affect Height (Feet): 5 Height (Inches): 8.00 Weight (Pounds): 180 Assessment/Plan Assessment/Plan alcohol dependence alcohol intox mdd the pt is not a dts Rachel Holbrook M.D. Jun 22, 2017 22:52
== END 2017-06-21 15:45 | disposition home or self-care (01) ==
LOC: EDBD 13:16 → EMR 14:00
DX: F23 Brief psychotic disorder (principal); R45.851 Suicidal ideations; F32.9 Major depressive disorder, single episode, unspecified; F10.929 Alcohol use, unspecified with intoxication, unspecified; J45.909 Unspecified asthma, uncomplicated; Z88.8 Allergy status to other drugs, medicaments and biological substances
CPT/HCPCS: 36415; 80053; 80307; 80329; 81003; 85025; 93005; 96361; 96372; 96374; 99284; J1200; J1630

== ENCOUNTER 2017-07-14 05:38 | Emergency (ER) | payer OTHER ==
[~2017-07-14] VITALS: Ht 180.3 cm; Wt 79.4 kg
[~2017-07-14 05:38] MED LIST changes: -DiphenhydrAMINE 50mg/ml Inj IVP ONE; -Haloperidol 5mg/ml Inj IM ONE; -LORazepam Inj 2mg/ml 1ml IM ONE
[2017-07-14 06:14] VITALS: BP 166/99
[2017-07-14] MEDS ORDERED: LORazepam Inj 2mg/ml 1ml IM ONE (06:15)
[2017-07-14 06:56] LABS: BASOPHILS % (AUTO) 1.2 % (0.0-2.0); EOSINOPHILS % (AUTO) 0.7 % (0.0-3.0); HEMATOCRIT 43.3 % (42.0-52.0); HEMOGLOBIN 15.8 G/DL (14.2-18.0); LYMPHOCYTES % (AUTO) 23.1 % (20.0-45.0); MEAN CORPUSCULAR VOLUME 93 FL (80-99); MONOCYTES % (AUTO) 6.4 % (1.0-10.0); NEUTROPHILS % (AUTO) 68.6 % (45.0-75.0); PLATELET COUNT 221 K/UL (150-450); RED BLOOD COUNT 4.64 M/UL (4.70-6.10); RED CELL DISTRIBUTION WIDTH 11.3 % (11.6-14.8); WHITE BLOOD COUNT 11.2 K/UL (4.8-10.8)
[2017-07-14 07:14] LABS: ANION GAP 11 mmol/L (5-15); BLOOD UREA NITROGEN 9 mg/dL (7-18); CALCIUM 8.5 MG/DL (8.5-10.1); CARBON DIOXIDE 25 MMOL/L (21-32); CHLORIDE 100 MMOL/L (98-107); CREATININE 0.8 MG/DL (0.55-1.30); POTASSIUM 3.5 MMOL/L (3.5-5.1); SODIUM 136 MMOL/L (136-145)
[2017-07-14 07:18] LABS: ALANINE AMINOTRANSFERASE 50 U/L (12-78); ALBUMIN 3.8 G/DL (3.4-5.0); ALBUMIN/GLOBULIN RATIO 1.1 (1.0-2.7); ALKALINE PHOSPHATASE 114 U/L (46-116); ASPARTATE AMINO TRANSFERASE 48 U/L (15-37); BILIRUBIN,TOTAL 0.9 MG/DL (0.2-1.0)
--- NOTE | 2017-07-14 07:47 | Emergency Room Report ---
Physical Exam Vital Signs Date Time Temp Pulse Resp B/P (MAP) Pulse Ox O2 Delivery O2 Flow Rate FiO2 07/14/17 05:51 98.6 92 18 141/87 98 Room Air 98.6 Medical Decision Making Diagnostic Impression: Primary Impression: Alcohol intoxication ER Course The patient was endorsed to me by Dr. Mantilla. Patient been previously seen at Hospital for similar symptoms. Patient has history of substance abuse. Blood alcohol was noted to be elevated on arrival. The patient appears to be sleeping well this time. Patient had been given Ativan. Dr. Holbrook was contacted for psychiatric evaluation. Labs Test 07/14/17 06:07 07/14/17 06:30 Urine Opiates Screen Negative (NEGATIVE) Urine Barbiturates Screen Negative (NEGATIVE) Phencyclidine (PCP) Screen Negative (NEGATIVE) Urine Amphetamines Screen Negative (NEGATIVE) Urine Benzodiazepines Screen Negative (NEGATIVE) Urine Cocaine Screen Negative (NEGATIVE) Urine Marijuana (THC) Screen Positive (NEGATIVE) White Blood Count 11.2 K/UL (4.8-10.8) Red Blood Count 4.64 M/UL (4.70-6.10) Hemoglobin 15.8 G/DL (14.2-18.0) Hematocrit 43.3 % (42.0-52.0) Mean Corpuscular Volume 93 FL (80-99) Mean Corpuscular Hemoglobin 34.1 PG (27.0-31.0) Mean Corpuscular Hemoglobin Concent 36.6 G/DL (32.0-36.0) Red Cell Distribution Width 11.3 % (11.6-14.8) Platelet Count 221 K/UL (150-450) Mean Platelet Volume 7.2 FL (6.5-10.1) Neutrophils (%) (Auto) 68.6 % (45.0-75.0) Lymphocytes (%) (Auto) 23.1 % (20.0-45.0) Monocytes (%) (Auto) 6.4 % (1.0-10.0) Eosinophils (%) (Auto) 0.7 % (0.0-3.0) Basophils (%) (Auto) 1.2 % (0.0-2.0) Sodium Level 136 MMOL/L (136-145) Potassium Level 3.5 MMOL/L (3.5-5.1) Chloride Level 100 MMOL/L (98-107) Carbon Dioxide Level 25 MMOL/L (21-32) Anion Gap 11 mmol/L (5-15) Blood Urea Nitrogen 9 mg/dL (7-18) Creatinine 0.8 MG/DL (0.55-1.30) Estimat Glomerular Filtration Rate > 60 mL/min (>60) Glucose Level 94 MG/DL (74-106) Calcium Level 8.5 MG/DL (8.5-10.1) Total Bilirubin 0.9 MG/DL (0.2-1.0) Aspartate Amino Transf (AST/SGOT) 48 U/L (15-37) Alanine Aminotransferase (ALT/SGPT) 50 U/L (12-78) Alkaline Phosphatase 114 U/L (46-116) Total Protein 7.4 G/DL (6.4-8.2) Albumin 3.8 G/DL (3.4-5.0) Globulin 3.6 g/dL Albumin/Globulin Ratio 1.1 (1.0-2.7) Salicylates Level 1.3 ug/mL (2.8-20) Acetaminophen Level < 2 MCG/ML (10-30) Serum Alcohol 114 mg/dL Last Vital Signs Date Time Temp Pulse Resp B/P (MAP) Pulse Ox O2 Delivery O2 Flow Rate FiO2 07/14/17 06:14 98.6 86 18 166/99 98 Room Air 98.6 Referrals: Alecia JUÁREZ,REFERRING (PCP) Tommy Zhang Jul 14, 2017 07:47
[2017-07-14 10:21] VITALS: BP 148/92
[2017-07-14 14:15] VITALS: BP 144/85
[2017-07-14 15:10] VITALS: BP 144/85
--- NOTE | 2017-07-16 01:07 | Consultation ---
History of Present Illness General Date patient seen: Jul 14, 2017 Chief Complaint: Behavioral Complaint Present Illness HPI the pt well know to this md, he has hx of depression and substance use d/o. he has presented several times to er with same complaints. poor compliance. several psych admissions. cont to use drugs and not follow up with psych. his sxs are not consistent with genuine mental disorder. the pt is not at imminent dts/dto/ he will be discharged with follow up referral Allergies: Coded Allergies: ARIPIPRAZOLE (Unverified Allergy, Unknown, 03/22/15) Medication History Scheduled Clonazepam* (Klonopin*), 2 MG ORAL TWICE A DAY, (Reported) Gabapentin* (Gabapentin*), 800 MG ORAL THREE TIMES A DAY, (Reported) Miscellaneous Medications [Risperdal], (Reported) [Zolof], (Reported) Patient History Limited by: medical condition History Provided By: Patient, Medical Record, PMD Healthcare decision maker Resuscitation status Advanced Directive on File Past Medical/Surgical History Past Medical/Surgical History: (1) Alcohol intoxication (2) Drug abuse (3) Anxiety (4) Syncope (5) Syncope (6) Suicidal ideations (7) Suicidal ideations (8) Suicidal ideations Review of Systems Psychiatric: Reports: prior hx, anxiety, depressed feelings Physical Exam General Appearance: no apparent distress, alert Height (Feet): 5 Height (Inches): 11.00 Weight (Pounds): 175 Assessment/Plan Status: stable Rachel Holbrook M.D. Jul 16, 2017 01:07
--- NOTE | 2017-07-16 14:53 | Emergency Room Report ---
History of Present Illness General Chief Complaint: Behavioral Complaint Source: Patient, Medical Record, PMD Present Illness HPI 47-year-old male presents ED for evaluation. Patient brought in by [employer]. Patient states that he wants to hurt himself. He called 911 today. States that he is hearing voices. States that he takes multiple psychiatric medications but is not compliant with them because he ran out. States he's also been drinking alcohol and is going through withdrawal. Denies any other drug use. Denies chest pain or shortness of breath. No other aggravating relieving factors. Denies any other associated symptoms Allergies: Coded Allergies: ARIPIPRAZOLE (Unverified Allergy, Unknown, 03/22/15) Patient History Past Medical History: asthma, psych hx Pertinent Family History: none Social History: Reports: alcohol use; Denies: smoking, drug use Immunizations: UTD Reviewed Nursing Documentation: PMH: Agreed; PSxH: Agreed Nursing Documentation-PMH Hx Asthma: Yes Hx Dialysis: No - NERVE PAIN BLE Hx Neurological Problems: Yes - LE nerve pain Hx Seizures: Yes Review of Systems All Other Systems: negative except mentioned in HPI Physical Exam Vital Signs Date Time Temp Pulse Resp B/P (MAP) Pulse Ox O2 Delivery O2 Flow Rate FiO2 07/14/17 05:51 98.6 92 18 141/87 98 Room Air 98.6 Sp02 EP Interpretation: reviewed, normal General Appearance: no apparent distress, alert, GCS 15, non-toxic Head: normocephalic, atraumatic Eyes: bilateral eye normal inspection, bilateral eye PERRL ENT: hearing grossly normal, normal pharynx, no angioedema, normal voice Neck: full range of motion, supple/symm/no masses Respiratory: chest non-tender, lungs clear, normal breath sounds, speaking full sentences Cardiovascular #1: regular rate, rhythm, no edema Cardiovascular #2: 2+ carotid (R), 2+ carotid (L), 2+ radial (R), 2+ radial (L) , 2+ dorsalis pedis (R), 2+ dorsalis pedis (L) Gastrointestinal: normal bowel sounds, non tender, soft, non-distended, no guarding, no rebound Rectal: deferred Genitourinary: normal inspection, no CVA tenderness Musculoskeletal: back normal, gait/station normal, normal range of motion, non- tender Neurologic: alert, oriented x3, responsive, motor strength/tone normal, sensory intact, speech normal Psychiatric: mood/affect normal, no suicidal/homicidal ideation, depressed affect, anxious Reflexes: 3+ bicep (R), 3+ bicep (L), 3+ tricep (R), 3+ tricep (L), 3+ knee (R) , 3+ knee (L) Skin: normal color, no rash, warm/dry, well hydrated Lymphatic: no adenopathy Medical Decision Making Diagnostic Impression: Primary Impression: Alcohol intoxication Qualified Codes: F10.920 - Alcohol use, unspecified with intoxication, uncomplicated Additional Impression: Behavioral change ER Course Hospital Course 47-year-old male presents to ED for suicidal ideation. on 5150 Differential diagnoses include: Major depressive disorder, unspecified psychosis , EtOH abuse, drug abuse Clinical course Patient placed on stretcher. On one to one observation. After initial history and physical I ordered labs, U. tox labs pending. Pending reevaluation. i. I feel this is a highly complex case requiring extensive working including EKG/Rhythm strip, Xray/CT/US, Blood/urine lab work, repeat exams while in ED, and administration of strong opiates/narcotics for pain control, admission to hospital or close patient follow up. Last Vital Signs Date Time Temp Pulse Resp B/P (MAP) Pulse Ox O2 Delivery O2 Flow Rate FiO2 07/14/17 15:10 98.8 100 20 144/85 96 Room Air 98.8 Referrals: Alecia JUÁREZREFERRING (PCP) Patient Instructions: Self-Destructive Behavior Janak Mantilla MD Jul 16, 2017 14:53
== END 2017-07-14 15:12 | disposition home or self-care (01) ==
LOC: EMR 06:13
DX: F10.129 Alcohol abuse with intoxication, unspecified (principal); F91.9 Conduct disorder, unspecified; R45.851 Suicidal ideations
CPT/HCPCS: 36415; 80053; 80307; 80329; 85025; 99283